=== PATIENT | female | born 1995 | race Caucasian/White ===

== ENCOUNTER 2022-07-11 13:57 | Outpatient (CLI) | payer BC ==
[2022-07-11] MEDS ORDERED: Iopamidol 370 76% 100 ML VIAL ONE (15:54)
== END 2022-07-11 13:58 | disposition home or self-care (01) ==
LOC: BICCT 13:57
PROVIDERS: ATTEND Student in an Organized Health Care Education/Training Program
DX: H93.A9 Pulsatile tinnitus, unspecified ear (principal)
CPT/HCPCS: 70496; Q9967